=== PATIENT | male | born 1965 | race Hispanic/Latino ===

== ENCOUNTER 2020-08-07 10:36 | Emergency (ER) | payer SELFPAY ==
[~2020-08-07] VITALS: Ht 170.2 cm; Wt 108.9 kg
[2020-08-07] MEDS ORDERED: HYDROCODONE/APAP 7.5MG-325MG 1 EA TAB PO NR (10:45)
[2020-08-07] MEDS ORDERED: KETOROLAC TROMETHAMINE 60 MG/2 ML VIAL IM NR (11:00)
[2020-08-07 12:22] VITALS: BP 137/76
== END 2020-08-07 12:23 | disposition home or self-care (01) ==
LOC: ER 10:38
DX: M25.561 Pain in right knee (principal)
CPT/HCPCS: 73560; 99284; J1885

== ENCOUNTER 2022-08-05 17:39 | Emergency (ER) | payer BC ==
[~2022-08-05] VITALS: Ht 170.2 cm; Wt 101.2 kg
[2022-08-05] MEDS ORDERED: TRAMADOL HCL 50 MG TAB PO ONE (18:45)
[2022-08-05] MEDS ORDERED: TRAMADOL HCL 50 MG TAB ONE (18:50)
[2022-08-05] MEDS ORDERED: KETOROLAC TROME10 MG PO (21:09)
== END 2022-08-06 01:11 | disposition home or self-care (01) ==
LOC: FSED 17:55
DX: M25.511 Pain in right shoulder (principal); M79.18 Myalgia, other site; Z98.84 Bariatric surgery status
CPT/HCPCS: 76536; 93926; 93971; 99282